=== PATIENT | female | born 1965 | race Caucasian/White ===

== ENCOUNTER → 2016-06-30 | Outpatient (CLI) | payer BC ==
--- NOTE | 2016-07-01 11:42 | MM ---
Reason for exam: screening (asymptomatic). Last mammogram was performed 5 years and 7 months ago. History: Patient is postmenopausal. Family history of breast cancer in maternal grandmother. Physical Findings: A clinical breast exam by your physician is recommended on an annual basis and results should be correlated with mammographic findings. MG 3D Screening Mammo W/Cad Bilateral CC and MLO view(s) were taken. Prior study comparison: December 15, 2010, [facility] DIGITAL RIGHT MAMMOGRAM w/CAD. December 08, 2010, bilateral digital screening mammo w/CAD. There are scattered fibroglandular densities. No significant changes when compared with prior studies. ASSESSMENT: Benign, BI-RAD 2 RECOMMENDATION: Routine screening mammogram of both breasts in 1 year.
== END | disposition home or self-care (01) ==
LOC: RADMAMWWP 16:09
PROVIDERS: ATTEND Obstetrics & Gynecology
DX: Z12.31 Encounter for screening mammogram for malignant neoplasm of breast (principal); Z80.3 Family history of malignant neoplasm of breast
CPT/HCPCS: 77063; G0202

== ENCOUNTER → 2017-08-09 | Outpatient (CLI) | payer BC ==
--- NOTE | 2017-08-11 09:01 | MM ---
Reason for exam: screening (asymptomatic). Last mammogram was performed 1 year and 1 month ago. History: Patient is postmenopausal. Family history of breast cancer in maternal grandmother. Physical Findings: A clinical breast exam by your physician is recommended on an annual basis and results should be correlated with mammographic findings. MG Screening Mammo w CAD Bilateral CC and MLO view(s) were taken. Prior study comparison: June 30, 2016, bilateral MG 3d screening mammo w/cad. December 15, 2010, [facility] DIGITAL RIGHT MAMMOGRAM w/CAD. There are scattered fibroglandular densities. No significant changes when compared with prior studies. ASSESSMENT: Benign, BI-RAD 2 RECOMMENDATION: Routine screening mammogram of both breasts in 1 year.
== END | disposition home or self-care (01) ==
LOC: RADMAMWWP 11:27
PROVIDERS: ATTEND Obstetrics & Gynecology
DX: Z12.31 Encounter for screening mammogram for malignant neoplasm of breast (principal)
CPT/HCPCS: 77067

== ENCOUNTER → 2018-05-03 | Outpatient (CLI) | payer BC ==
--- NOTE | 2018-05-03 08:58 | XR ---
EXAMINATION TYPE: XR chest 2V DATE OF EXAM: 05/03/2018 COMPARISON: NONE TECHNIQUE: PA and lateral views submitted. HISTORY: Cough, bronchitis FINDINGS: The lungs are clear and there is no pneumothorax, pleural effusion, or focal pneumonia. IMPRESSION: 1. No acute process.
== END | disposition home or self-care (01) ==
LOC: RADXRMAIN 08:32
PROVIDERS: ATTEND Midwife
DX: R05 Cough (principal)
CPT/HCPCS: 71046

== ENCOUNTER → 2019-12-10 | Outpatient (CLI) | payer BC ==
--- NOTE | 2019-12-11 09:37 | MM ---
Reason for exam: screening (asymptomatic). Last mammogram was performed 2 years and 4 months ago. History: Patient is postmenopausal. Family history of breast cancer in maternal grandmother. Took hormonal contraceptives for 6 years. Physical Findings: A clinical breast exam by your physician is recommended on an annual basis and results should be correlated with mammographic findings. MG 3D Screening Mammo W/Cad Bilateral CC and MLO view(s) were taken. Prior study comparison: August 09, 2017, bilateral MG screening mammo w CAD. June 30, 2016, bilateral MG 3d screening mammo w/cad. There are scattered fibroglandular densities. There is chronic nodularity bilaterally upper outer aspect. Asymmetric breast tissue bilateral upper outer aspect, stable. Focal asymmetry left anterior middle depth, upper outer quadrant CC 47/85 and MLO 38/93, new from prior. ASSESSMENT: Incomplete: need additional imaging evaluation, BI-RAD 0 RECOMMENDATION: Ultrasound of the left breast. [facility] will attempt to contact patient to return for ultrasound.
== END | disposition home or self-care (01) ==
LOC: RADMAMWWP 09:50
PROVIDERS: ATTEND Family Medicine
DX: Z12.31 Encounter for screening mammogram for malignant neoplasm of breast (principal)
CPT/HCPCS: 77063; 77067

== ENCOUNTER → 2019-12-20 | Outpatient (CLI) | payer BC ==
--- NOTE | 2019-12-20 08:44 | USB ---
Reason for exam: additional evaluation requested from abnormal screening. History: Patient is postmenopausal. Family history of breast cancer in maternal grandmother. Took hormonal contraceptives for 6 years. Physical Findings: Nurse did not find any significant physical abnormalities on exam. US Breast Workup Limited LT Left limited breast ultrasound including focal area of concern, retroareolar and axilla demonstrates a 0.6 x 0.7 x 0.4cm lobular, cluster at 12 o'clock. Scanned 12-3 o'clock. 6 month follow up recommended. These results were verbally communicated with the patient and result sheet given to the patient on 12/20/19. ASSESSMENT: Probably benign, BI-RAD 3 RECOMMENDATION: Follow-up diagnostic mammogram of the left breast in 6 months.
== END | disposition home or self-care (01) ==
LOC: RADUSWWP 06:52
PROVIDERS: ATTEND Family Medicine
DX: R92.8 Other abnormal and inconclusive findings on diagnostic imaging of breast (principal)

== ENCOUNTER → 2020-06-25 | Outpatient (CLI) | payer BC ==
--- NOTE | 2020-06-25 21:10 | CONS ---
CONSULTATION DATE OF SERVICE: 06/25/2020 This 54-year-old lady has been re-evaluated in [facility] for treatment of obstructive sleep apnea-hypopnea syndrome. HISTORY OF PRESENT ILLNESS SLEEP-WAKE EVALUATION: The last time I saw this patient was in January of 2017. Since that time, the patient has continued to use her CPAP equipment every night. Her sleep schedule is from 9:30 or 10 p.m. to 5:45 a.m. on working days and until 7 or 7:15 a.m. on weekends. No problem with falling asleep, although she has a TV in the bedroom. She usually sleeps on the side position. With the machine, the patient does not snore. She maybe wakes up once for the restroom. Sometimes she has episodes of leg cramps, which is related to having a significant amount of caffeine. No history of hypnagogic hallucinations, sleep paralysis or cataplexy. [place] Sleepiness Scale today is only 3, which is normal. I checked the patient's CPAP unit. Usage is 30/30 nights for more than 4 hours. Average usage is 7.8 hours per night. CPAP pressure is 10 cm of water. The machine does not have information about apnea-hypopnea index. PAST MEDICAL HISTORY: Positive for allergic rhinitis. PAST SURGICAL HISTORY: Tonsillectomy, adenoidectomy, total hysterectomy, foot surgery. MEDICATIONS: None. SOCIAL HISTORY: Negative for smoking or using alcohol. FAMILY HISTORY: Cardiac problems in her father, atrial fibrillation. REVIEW OF SYSTEMS: Episodes of leg cramps; otherwise negative. PHYSICAL EXAMINATION: GENERAL: A pleasant lady without distress. VITAL SIGNS: BP 161/103, HR 62, RR 16, height 5 feet 6 inches, weight 225.6 pounds, temperature 97.0, oxygen saturation at room air 98%. HEENT: PERRLA, EOMI. Evaluation of oropharynx showed tongue protrudes midline. Moderately low position of soft palate. Mallampati III. NECK: Supple. No JVD. Thyroid is not palpable. LUNGS: Clear to percussion and to auscultation. Good air exchange. No wheezing or rhonchi. HEART: S1, S2 regular. No murmurs, gallops or rubs. ABDOMEN: Obese. EXTREMITIES: No clubbing or cyanosis. DIRECTOR OF RESTAURANT OPERATIONS: Awake, alert, and oriented X3. Cranial nerves 2 to 7 intact. There is no fasciculation or atrophy. noted. No focal deficits observed. IMPRESSION: 1. Severe obstructive sleep apnea-hypopnea syndrome by results of sleep study in 2013. At that time, apnea-hypopnea index was 81.0. Results of titration in 2013 showed normal respiration on the pressure 10 cm of water. This is the same level of pressure which the patient has now. No snoring with the machine. The patient demonstrated 100% compliance with treatment, benefitting from treatment. Clinically, the patient's respiration is under control with the present pressure of 10 cm of water. 2. Obesity. BMI 34.3. The patient's weight significantly increased since her last visit, from 189 pounds up to 225 pounds today. 3. Allergic rhinitis. 4. Status post tonsillectomy. 5. Hypertension today in the office. PLAN: 1. The patient should continue to use her CPAP equipment every night for the whole night. 2. If there is any problem with the CPAP unit, the CPAP unit should be replaced. It is about 7 years old. 3. Monitoring of blood pressure, low-sodium diet. 4. Losing weight. 5. No driving if feeling any sleepiness. 6. Prescription for all necessary CPAP supplies, including mask, tube, filters. Thank you very much for allowing me to participate in the management of your patient. Sincerely, Jass Linares MD, PhD, FAASM Diplomat of [place] [employer] [place] [employer] [facility] [place] MMODL / ERICKAN: [id number] /
== END ==
CPT/HCPCS: 99211

== ENCOUNTER → 2021-10-15 | Outpatient (CLI) | payer BC ==
--- NOTE | 2021-10-15 14:13 | P.PN ---
Subjective DATE: 10/15/2021 FOLLOW UP VISIT. Patient with obstructive sleep apnea hypopnea syndrome return to sleep center for follow-up visit. Patient is using PAP equipment every night for the whole night, getting PAP supplies in time. The patient does not have significant problems with the mask and humidification. Occasionally she feels a air in her stomach in the morning. [place] sleepiness scale is 1. I checked PAP unit. Monitor life expectancy exceeded by information on the screen on the machine. PAP unit pressure 10 cm H2O. Usage is 100 % for more then 4 hours, average 7.2 hours per night. CPAP unit does not have information about apnea-hypopnea index and leak. MEDICATIONS:1. Claritin During physical exam: GENERAL: A pleasant patient without any distress. VITAL SIGNS: BP 161/92, HR 81, RR 16, weight 241.8, temperature 97.3, oxygen saturation at room air 97. HEENT: PERRLA, EOMI.low position of soft palate, Mallapati 3. NECK: Supple. No JVD. LUNGS: Clear to percussion and to auscultation. Good air exchange. No wheezing or rhonchi. HEART: S1, S2 regular. ABDOMEN: Soft and nontender. Obese EXTREMITIES: No clubbing or cyanosis. FINISHER OPERATOR: Awake, alert, and oriented x3. No focal deficit. Impressions: 1. Obstructive sleep apnea-hypopnea syndrome. Patient demonstrated great compliance with treatment, benefiting from treatment. Normal respiration on CPAP. Sometimes patient experiencing feeling of air in the stomach which is side effect of Pap therapy. Pressure needs to be adjusted down. 2. Obesity. 3. ALLERGIC rhinitis. 4. Was post tonsillectomy. 5. Hypertension in the office today. According to patient taking for her blood pressure not at the medical office showed normal range of the blood pressure. Plan: 1. Prescription for new Pap unit have been written. It will be AutoPap with range of the pressure 5-9 cm of water. 2. Follow-up visit after 30 days of using new Pap unit to evaluate compliance with treatment, clinical response and to be sure that no any side effects of therapy. 3. PAP unit should stay lower then position of the head. 4. Advised patient to remove all remaining water from humidifier canister daily and make it dry after each usage. Refill canister with fresh distilled water before each usage. 5. Sleep hygiene with regular time in bed for at least 8 hours. 6. Precautions related to driving. No driving if feel any sleepiness. 7. I will maintain prescription for PAP supplies including mask, tube, filters. 8. Watching and losing weight. Thank you very much for allowing me to participate in the management of your patient. Jass Linares MD, PhD, FAASM. Diplomat of [place] [employer], Sleep Medicine Board by [place] [employer] [facility] [place]
== END ==
LOC: SLEEP 13:12
PROVIDERS: ATTEND Internal Medicine
DX: G47.33 Obstructive sleep apnea (adult) (pediatric) (principal); E66.9 Obesity, unspecified; Z99.89 Dependence on other enabling machines and devices; I10 Essential (primary) hypertension; J30.9 Allergic rhinitis, unspecified; Z90.09 Acquired absence of other part of head and neck

== ENCOUNTER → 2023-05-09 | Outpatient (CLI) | payer BC ==
--- NOTE | 2023-05-09 11:41 | P.PN ---
Subjective DATE: 05/09/2023 FOLLOW UP VISIT. Patient with obstructive sleep apnea hypopnea syndrome return to sleep center for follow-up visit. Information from previous visit have been reviewed. This is first visit after patient received new CPAP unit Patient is using PAP equipment every night for the whole night, getting PAP supplies in time. The patient does not have significant problems with the mask, PAP unit and humidification. [place] sleepiness scale is 4, which is normal. I checked information from PAP unit. PAP unit pressure 529, average 9 cm H2O. Usage is 100 % for more then 4 hours, average 7 hours per night. Leak is 1 l/m, which is in acceptable range. Apnea Hypopnea Index is 3.0, which is normal. MEDICATIONS: None at the present time During physical exam: GENERAL: A pleasant patient without any distress. VITAL SIGNS: BP 162/85, HR 91, RR 12 , weight 243.0, temperature 98.4, oxygen saturation at room air 96 % . HEENT: PERRLA, EOMI.low position of soft palate, Mallapati 3 . NECK: Supple. No JVD. LUNGS: Clear to percussion and to auscultation. Good air exchange. No wheezing or rhonchi. HEART: S1, S2 regular. ABDOMEN: Soft and nontender. Obese EXTREMITIES: No clubbing or cyanosis. TUBE BALANCER: Awake, alert, and oriented x3. No focal deficit. Impressions: 1. Obstructive sleep apnea-hypopnea syndrome. Patient demonstrated great compliance with treatment, benefiting from treatment. 2. History of year infection several months ago, for last 2 months patient may feel some discomfort in the ears. 3. Obesity, BMI 40.4. 4. History of ALLERGIC rhinitis. 5. Hypertension in the office. 6. Status post tonsillectomy. Plan: 1. Continue using PAP equipment every night for the whole night. 2. To change air filter at least 1-2 times per month. 3. PAP unit should stay lower then position of the head. 4. Advised patient to remove all remaining water from humidifier canister daily and make it dry after each usage. Refill canister with fresh distilled water before each usage. 5. Sleep hygiene with regular time in bed for at least 8 hours. 6. Precautions related to driving. No driving if feel any sleepiness. 7. I will maintain prescription for PAP supplies including mask, tube, filters. 8. Follow up visit in 6 months or earlier if patient has any problems. 9. Watching and losing weight. 10. Monitoring blood pressure, low sodium diet. 11. Consider evaluation by ear nose and throat physician if necessary for some discomfort in the ears. Thank you very much for allowing me to participate in the management of your patient. Jass Linares MD, PhD, FAASM. Diplomat of [place] [employer], Sleep Medicine Board by [employer] [employer] Machine T[facility] [place]
== END ==
LOC: 3 N SLEEP 11:02
PROVIDERS: ATTEND Internal Medicine
DX: G47.33 Obstructive sleep apnea (adult) (pediatric) (principal); E66.9 Obesity, unspecified; I10 Essential (primary) hypertension; Z98.890 Other specified postprocedural states; Z90.89 Acquired absence of other organs; Z68.41 Body mass index [BMI] 40.0-44.9, adult; Z87.09 Personal history of other diseases of the respiratory system; Z99.89 Dependence on other enabling machines and devices
CPT/HCPCS: 99212

== ENCOUNTER → 2023-12-22 | Outpatient (CLI) | payer BC ==
[2023-12-22 11:08] VITALS: BP 157/91; PULSE 66; RESP 16; TEMP 98.1
--- NOTE | 2023-12-22 11:22 | P.PROGSL ---
Subjective DATE: 12/22/2023 FOLLOW UP VISIT. Patient with obstructive sleep apnea hypopnea syndrome return to sleep center for follow-up visit. Information from previous visit have been reviewed. Patient is using PAP equipment every night for the whole night, getting PAP supplies in time. The patient does not have significant problems with the mask, PAP unit and humidification. [place] sleepiness scale is 3, which is normal. I checked information from PAP unit. PAP unit pressure 5-9, average 9 cm H2O. Usage is 100% for more then 4 hours, average 7.3 hours per night. Leak is 6 l/m, which is in acceptable range. Apnea Hypopnea Index is 1.9, which is normal. MEDICATIONS have been reviewed, please see below. During physical exam: GENERAL: A pleasant patient without any distress. VITAL SIGNS: Please see below, weight is 248.2 lbs. HEENT: PERRLA, EOMI.low position of soft palate, Mallapati 3. NECK: Supple. No JVD. LUNGS: Clear to percussion and to auscultation. Good air exchange. No wheezing or rhonchi. HEART: S1, S2 regular. ABDOMEN: Soft and nontender. Mildly obese EXTREMITIES: No clubbing or cyanosis. LOANS CONSULTANT: Awake, alert, and oriented x3. No focal deficit. Impressions: 1. Obstructive sleep apnea-hypopnea syndrome. Patient demonstrated great compliance with treatment, benefiting from treatment. 2. Obesity, BMI 41.2, patient increased weight on 5 pounds comparing with previous visit. 3. History of allergic rhinitis. 4. Hypertension. 5. Status post tonsillectomy. Plan: 1. Continue using PAP equipment every night for the whole night. 2. Sleep hygiene with regular time in bed for at least 7.5-8 hours 3. PAP unit should stay lower then position of the head. 4. Advised patient to remove all remaining water from humidifier canister daily and make it dry after each usage. Refill canister with fresh distilled water before each usage. 5. Watching weight. 6. Precautions related to driving. No driving if feel any sleepiness. 7. I will maintain prescription for PAP supplies including mask, tube, filters. 8. Follow up visit in 6 months or earlier if patient has any problems. Thank you very much for allowing me to participate in the management of your patient. Jass Linares MD, PhD, FAASM. Diplomat of [place] [employer], Sleep Medicine Board by [place] [employer] [facility] [place] Objective - Vital Signs Vital Signs: Vital Signs Temp 98.1 F 12/22/23 11:07 Pulse 66 12/22/23 11:07 Resp 16 12/22/23 11:07 BP 157/91 12/22/23 11:07 Pulse Ox 96 12/22/23 11:07 FiO2 Intake & Output 12/21/23 12/22/23 12/22/23 18:59 06:59 18:59 Weight 112.491 kg Home Medications: Home Medications Medication Instructions Recorded Confirmed Type Fexofenadine HCl [Juanis Allergy] 60 mg PO 12/22/23 History
== END ==
LOC: 3 N SLEEP 10:27
PROVIDERS: ATTEND Internal Medicine
CPT/HCPCS: 99212